=== PATIENT | female | born 1950 | race Caucasian/White ===

== ENCOUNTER 2023-05-29 18:52 | Emergency (ER) | payer BC, MEDICARE, OTHER ==
[~2023-05-29] VITALS: Ht 167.6 cm; Wt 75.0 kg
[2023-05-29 18:54] VITALS: O2SAT 98
[2023-05-29] MEDS: TETANUS, DIPHTHERIA, PERTUSSIS VAC/PF 0.5ML (>10YR OLD) IM ONE (19:52)
[2023-05-29] MEDS: LIDOCAINE HCL/PF 1% 10 MG/ML 5ML VIAL INFIL ONE (19:52)
[2023-05-29] MEDS: BACITRACIN ZINC OINT UDPKT TOP ONE (19:52)
[2023-05-29] MEDS ORDERED: IRBE300T25 MT (20:59)
[2023-05-29 21:12] VITALS: BP 144/98; PULSE 98; RESP 16; TEMP 98
== END 2023-05-29 21:13 | disposition home or self-care (01) ==
LOC: ER 18:52
DX: S01.81XA Laceration without foreign body of other part of head, initial encounter (principal); Z76.0 Encounter for issue of repeat prescription; I10 Essential (primary) hypertension; W18.09XA Striking against other object with subsequent fall, initial encounter; Y93.9 Activity, unspecified; Y92.89 Other specified places as the place of occurrence of the external cause; Y99.8 Other external cause status
CPT/HCPCS: 99285; 70450; 90715; 12013; 90471; J3490